=== PATIENT | male | born 1960 | race Caucasian/White ===

== ENCOUNTER 2019-01-13 06:28 | Day surgery (SDC) | payer BC ==
--- NOTE | 2019-01-08 16:00 | RAD REPORT ---
EXAM DESCRIPTION: RAD - Chest Pa And Lat (2 Views) - 01/08/2019 3:54 pm CLINICAL HISTORY: preop Chest pain. COMPARISON: Chest Single View dated 07/21/2016; CHEST SINGLE VIEW dated 06/11/2015; CHEST SINGLE VIEW dated 06/10/2015 FINDINGS: The lungs are clear. The heart is normal in size. No displaced fractures. IMPRESSION: No acute or concerning finding suspected.
[2019-01-08 16:20] LABS: Absolute Lymphocytes (CBC) 1.8 K/uL (0.7-4.9); Basophils % 0.2 % (0-1.3); Eosinophils % 1.1 % (0-4.4); Hematocrit 47.3 % (39.6-49.0); Lymphocytes % 26.4 % (15.3-44.8); MPV 8.8 fL (7.6-11.3); Monocytes % 10.2 % (3.3-12.3); RBC Red Blood Cell Count 5.43 M/uL (4.33-5.43)
[2019-01-08 16:37] LABS: Protime INR 1.33
[2019-01-08 16:40] LABS: Potassium 4.6 mmol/L (3.5-5.1)
[2019-01-13] MEDS ORDERED: HEPA 1000U/500MLS 0 UNIT/0 ML BAG IV ONE (06:55)
[2019-01-13] MEDS ORDERED: LIDOCAINE 1% MPF 30 ML VIAL ONE (06:55)
[2019-01-13] MEDS ORDERED: NA CHLORIDE 0.9% 500 ML ONE (06:55)
[2019-01-13] MEDS ORDERED: ATROPINE SULF 1 MG/10 ML SYR IV ONE (07:34)
[2019-01-13] MEDS ORDERED: MIDAZOLAM HCL 5 MG/5 ML INJ ONE (07:34)
[2019-01-13] MEDS ORDERED: MIDAZOLAM HCL 2 MG/2 ML INJ ONE ×3 (07:52→08:00)
[2019-01-13 09:33] VITALS: BP 107/70; O2SAT 100
[2019-01-13 09:35] VITALS: TEMP 97.6
--- NOTE | 2019-01-13 12:50 | EKG ---
Test Date: 2019-01-13 Test Time: 08:03:56 Machine Stripper Cutter: TC MEASUREMENT RESULTS: Intervals: Rate: 91 MI: 178 QRSD: 92 QT: 382 QTc: 469 [place]: P: 51 MI: 178 QRS: -16 T: 46 INTERPRETIVE STATEMENTS: Normal sinus rhythm Normal ECG Compared to ECG 07/21/2016 06:46:13 Sinus tachycardia no longer present Myocardial infarct finding no longer present Electronically Signed On 01-13-19 12:49:15 CDT by Stephen Slater
--- NOTE | 2019-01-13 17:52 | OP ---
Surgeon: Stephen Slater MD Admitted on 01/13/2019 for cardioversion. Indication: Atrial fibrillation. Procedure: Direct current cardioversion. Procedure In Detail: The patient received 17 mg of joule of Versed for IV sedation. One shock with 200 joules converted into sinus rhythm. There were no complications. No blood loss. Postoperative Diagnosis: Successful cardioversion from atrial fibrillation to sinus rhythm. Plan: I am going to keep him on Xarelto. I am going to start him on Multaq 400 b.i.d. He will see me in the office in 2 weeks. Total conscious sedation was 30 minutes. JOEY/DARWIN Voice ID: [id number] Report ID: [id number]
== END 2019-01-13 09:35 | disposition home or self-care (01) ==
LOC: CCL 06:28
PROC: 5A2204Z Restoration of Cardiac Rhythm, Single (ICD-10-PCS; principal; 2019-01-13)
DX: I48.0 Paroxysmal atrial fibrillation (principal); I42.9 Cardiomyopathy, unspecified; I10 Essential (primary) hypertension; G47.30 Sleep apnea, unspecified; E66.9 Obesity, unspecified; Z68.31 Body mass index [BMI] 31.0-31.9, adult; Z79.01 Long term (current) use of anticoagulants
CPT/HCPCS: 36415; 71046; 80048; 85025; 85610; 85730; 92960; 93005; J2250

== ENCOUNTER 2021-10-31 06:30 | Day surgery (SDC) | payer BC ==
--- NOTE | 2021-10-28 10:01 | RAD REPORT ---
EXAM DESCRIPTION: RAD - Chest Pa And Lat (2 Views) - 10/28/2021 9:25 am CLINICAL HISTORY: pre procedure screening COMPARISON: Two view chest 01/08/2019 TECHNIQUE: Frontal and lateral views of the chest were obtained. FINDINGS: The lungs are clear. Interstitial pattern matches comparison. Heart size is prominent, ac centuated by somewhat shallow inspiration. No significant change from 2019 seen. Upper lobe vasculatu re within normal limits. No nickie mass or lymphadenopathy seen. No pleural effusion or pneumothorax seen. No acute bony finding noted. No aortic abnormality. IMPRESSION: No acute cardiopulmonary process. No significant change from comparison study.
[2021-10-28 10:02] LABS: Absolute Lymphocytes (CBC) 1.3 K/uL (0.7-4.9); Hematocrit 45.9 % (39.6-49.0); Lymphocytes % 21.8 % (15.3-44.8); MPV 8.1 fL (7.6-11.3); RBC Red Blood Cell Count 5.46 M/uL (4.33-5.43)
[2021-10-28 10:12] LABS: Potassium 3.8 mmol/L (3.5-5.1)
[2021-10-28 10:50] LABS: Protime INR 1.61
[2021-10-31] MEDS ORDERED: METOPROLOL TARTRATE 5 MG/5 ML INJ IV ONE (06:37)
[2021-10-31] MEDS ORDERED: MIDAZOLAM HCL 5 ML ONE (06:38)
[2021-10-31] MEDS ORDERED: MIDAZOLAM HCL 2 MG/2 ML INJ ONE ×2 (06:38→08:27)
[2021-10-31] MEDS ORDERED: FENTANYL CITR 100 MCG/2 ML ONE (06:38)
[2021-10-31] MEDS ORDERED: ATROPINE SULF 1 MG/10 ML SYR IV ONE (06:39)
[2021-10-31] MEDS ORDERED: FLUMAZENIL 0.1 MG/ML (5 mL VIAL) IV ONE (06:39)
[2021-10-31] MEDS ORDERED: NA CHLORIDE 0.9% 500 ML ONE (07:01)
[2021-10-31 07:22] VITALS: TEMP 98.5
--- NOTE | 2021-10-31 08:09 | OP ---
Date of Procedure: 10/31/2021 Surgeon: Stephen Slater MD [place] [employer]: Ms. Ingrid Holt. Procedure: Direct current cardioversion. Indication: Recurrent atrial fibrillation, on Multaq and Xarelto. Mr. Viera is 61. Has a histo ry of idiopathic cardiomyopathy, paroxysmal atrial fibrillation. Has been in recurrent atrial fibril lation with symptoms. On Multaq and Xarelto. Procedure In Detail: Brought to the recovery room today as an outpatient. He received a total of 12 mg of Versed IV push. He received 2 shocks of 200 joules and he converted to sinus rhythm with some PACs. I did give him 5 mg of IV Lopressor as well. There were no complications or blood loss. Final Diagnosis: Status post successful cardioversion of atrial fibrillation to sinus rhythm. We will continue Multaq and Xarelto. If he recurs on that, we will consider ablation. JOEY/DARWIN Voice ID: [id number] Report ID: [id number]
[2021-10-31 09:11] VITALS: BP 120/80; O2SAT 99
--- NOTE | 2021-11-01 09:35 | EKG ---
Test Date: 2021-10-31 Test Time: 06:56:44 Bean Picker Machine Operator: LAUREN MEASUREMENT RESULTS: Intervals: Rate: 78 NH: 194 QRSD: 94 QT: 446 QTc: 508 [place]: P: 57 NH: 194 QRS: -16 T: 43 INTERPRETIVE STATEMENTS: Normal sinus rhythm Possible Left atrial enlargement Prolonged QT Abnormal ECG Compared to ECG 01/13/2019 08:03:56 Prolonged QT interval now present Electronically Signed On 11-01-21 09:32:03 CDT by Stephen Slater
== END 2021-10-31 09:13 | disposition home or self-care (01) ==
LOC: CCL 06:30
DX: I48.0 Paroxysmal atrial fibrillation (principal); I42.9 Cardiomyopathy, unspecified; I10 Essential (primary) hypertension; G47.33 Obstructive sleep apnea (adult) (pediatric); E66.9 Obesity, unspecified; Z79.01 Long term (current) use of anticoagulants; Z20.822 Contact with and (suspected) exposure to COVID-19
CPT/HCPCS: 93005; 85025; 80048; 36415; 85610; 85730; 71046; 92960; U0003; J2250 ×3; J7040; J3010

== ENCOUNTER 2022-05-22 07:31 | Day surgery (SDC) | payer BC ==
[2022-05-22] MEDS ORDERED: Ringers Lactate 1,000 ML IV ONE (08:03)
[2022-05-22] MEDS ORDERED: LIDOCAINE 1% MPF 5 ML VIAL ONE (09:30)
[2022-05-22] MEDS ORDERED: propofoL 200 MG/20 ML VIAL IV ONE ×3 (09:30→09:51)
--- NOTE | 2022-05-22 10:07 | ENDO RPT ---
[address], [address] COLONOSCOPY PROCEDURE REPORT EXAM DATE: 05/22/2022 PATIENT NAME: Nicole Viera MR #: [id number] BIRTHDATE: 1960 ATTENDING: Jose Valencia DR STATUS: outpatient JUNIOR SYSTEMS ENGINEER: Colleen Gutierrez RN and Roberto Comer [facility] INDICATIONS: The patient is a 61 yr old Male here for a colonoscopy due to colon cancer screening PROCEDURE PERFORMED: Colonoscopy with biopsy MEDICATIONS: Per Anesthesia. ESTIMATED BLOOD LOSS: None CONSENT: The patient understands the risks and benefits of the procedure and understands that these risks include, but are not limited to: sedation, allergic reaction, infection, perforation and/or bleeding. Alternative means of evaluation and treatment include, among others: physical exam, x-rays, and/or surgical intervention. The patient elects to proceed with this endoscopic procedure. DESCRIPTION OF PROCEDURE: During intra-op preparation period all mechanical medical equipment was checked for proper function. Hand hygiene and appropriate measures for infection prevention was taken. Procedure, possible complications, alternatives including, but not limited to possibility of bleeding, perforation, tear, infection, sepsis, need for surgery, need for blood transfusion, were explained to the patient. After the risks, benefits and alternatives of the procedure were thoroughly explained, Informed consent was verified, confirmed and timeout was successfully executed by the treatment team. The patient was placed in the left lateral position. A digital rectal exam was performed and revealed internal hemorrhoids. After appropriate level of anesthesia, the scope was passed. The [id number] ([id number]) endoscope was introduced through the anus and advanced to the cecum, which was identified by both the appendix and ileocecal valve. The quality of the prep was fair. The instrument was then slowly withdrawn as the colon was fully examined. Scope withdrawal time was 10 minutes. COLON FINDINGS: A small patch of abnormal mucosa was found in the sigmoid colon. The mucosa was erythematous. A biopsy of the lesion was performed using cold forceps. Moderate sized internal hemorrhoids were found. Retroflexed views revealed no abnormalities. The scope was then completely withdrawn from the patient and the procedure terminated. ADVERSE EVENTS: There were no complications. IMPRESSIONS: 1. Small abnormal mucosa was found in the sigmoid colon; The mucosa was erythematous; biopsy of the lesion was performed using cold forceps 2. Moderate sized internal hemorrhoids RECOMMENDATIONS: 1. await biopsy results 2. avoid NSAIDS for 2 weeks 3. fiber rich diet 4. follow-up: office 2 week(s) 5. Monitor for any evidence of rectal bleeding. 6. yearly hemoquant 7. hemorrhoidal hygiene 8. yearly hemoccult starting in 4 years RECALL: Return in 5 year(s) for Colonoscopy, pending biopsy results. Jose Valencia DR eSigned: Jose Valencia DR 05/22/2022 10:06 AM cc: CPT CODES: ICD9 CODES: PATIENT NAME: Nicole Viera MR#: [id number]
[2022-05-22 11:32] VITALS: O2SAT 99
[2022-05-22 11:33] VITALS: TEMP 98.3
[2022-05-22 11:34] VITALS: BP 142/84
== END 2022-05-22 10:57 | disposition home or self-care (01) ==
LOC: OR 07:31
PROVIDERS: ATTEND Surgery
PROC: 0DBN8ZX Excision of Sigmoid Colon, Via Natural or Artificial Opening Endoscopic, Diagnostic (ICD-10-PCS; principal; 2022-05-22 09:45)
DX: Z12.11 Encounter for screening for malignant neoplasm of colon (principal); K40.90 Unilateral inguinal hernia, without obstruction or gangrene, not specified as recurrent; I10 Essential (primary) hypertension; I48.91 Unspecified atrial fibrillation; K64.8 Other hemorrhoids; K52.9 Noninfective gastroenteritis and colitis, unspecified
CPT/HCPCS: 88305; 45380; J2704 ×3; J2001; J7120